=== PATIENT | male | born 1955 | race Caucasian/White ===

== ENCOUNTER 2025-04-24 12:34 | Inpatient (IN) | payer MEDICARE, OTHER ==
[~2025-04-24] VITALS: Ht 180.3 cm; Wt 69.9 kg
[2025-04-24 13:04] LABS: BASOPHILS # (AUTO) 0.1 K/UL (0.0-0.2); BASOPHILS % (AUTO) 1.2 % (0.0-2.0); EOSINOPHILS # (AUTO) 0.1 K/uL (0.0-0.7); EOSINOPHILS % (AUTO) 2.5 % (0.0-7.0); HEMATOCRIT 30.3 % (36.7-47.1); HEMOGLOBIN 10.6 g/dL (12.5-16.3); LYMPHOCYTES # (AUTO) 1.7 K/uL (0.8-4.8); LYMPHOCYTES % (AUTO) 32.2 % (20.5-51.5); MEAN CORPUSCULAR HGB CONC 35 g/dL (32.5-36.3); MEAN CORPUSCULAR VOLUME 91.4 fL (73.0-96.2); MONOCYTES # (AUTO) 0.5 K/uL (0.1-1.30); MONOCYTES % (AUTO) 9.4 % (0.0-11.0); NEUTROPHILS # (AUTO) 2.9 K/uL (1.8-8.9); NEUTROPHILS % (AUTO) 54.7 % (38.5-71.5); PLATELET COUNT (AUTO) 263 K/uL (152-348); RED BLOOD CELL COUNT(AUTO) 3.32 MIL/uL (4.06-5.63); RED CELL DISTRIBUTION WIDTH 13.2 % (12.1-16.2); WHITE BLOOD COUNT (AUTO) 5.2 K/uL (3.6-10.2)
[2025-04-24 13:06] LABS: CALCIUM 9.5 mg/dL (8.5-10.1); CARBON DIOXIDE 29 mmol/L (21-32); CHLORIDE 96 mmol/L (98-107); CREATININE 1.1 mg/dL (0.6-1.3); GLUCOSE 144 mg/dL (74-106); SODIUM SERUM 133 mmol/L (136-145); UREA NITROGEN, BLOOD 28 mg/dL (7-18)
[2025-04-24 13:07] LABS: ETHANOL < 3 MG/DL (0-10)
[2025-04-24 13:12] LABS: ALANINE AMINOTRANSFERASE 18 U/L (16-63); ALKALINE PHOSPHATASE 117 U/L (50-136); ASPARTATE AMINOTRANSFERASE 14 U/L (15-37); BILIRUBIN,DIRECT 0.1 mg/dL (0.0-0.2); BILIRUBIN,TOTAL 0.5 mg/dL (0.2-1.0); TOTAL PROTEIN, SERUM 6.9 g/dL (6.4-8.2)
[2025-04-24] MEDS ORDERED: INSU100I26 SQ (13:12)
[2025-04-24] MEDS ORDERED: INSU100V39 SQ (13:12)
[2025-04-24] MEDS ORDERED: MELA5TAB PO (13:12)
[2025-04-24] MEDS ORDERED: PANT40TA49 PO (13:12)
[2025-04-24] MEDS ORDERED: ASCO500C18 PO (13:12)
[2025-04-24] MEDS ORDERED: GLUC1KIT IM (13:12)
[2025-04-24] MEDS ORDERED: SENN-18 PO (13:12)
[2025-04-24] MEDS ORDERED: FLUT16SP NS (13:12)
[2025-04-24] MEDS ORDERED: FLUD0.1T PO (13:12)
[2025-04-24] MEDS ORDERED: FERR-68 PO (13:12)
[2025-04-24] MEDS ORDERED: TERA2CAP4 PO (13:12)
[2025-04-24] MEDS ORDERED: PROP10TA10 PO (13:12)
[2025-04-24] MEDS ORDERED: POLY250017 PO (13:12)
[2025-04-24] MEDS ORDERED: AMAN100T PO (13:12)
[2025-04-24] MEDS ORDERED: MULT-594 PO (13:12)
[2025-04-24 13:45] LABS: *BILIRUBIN,URIN NEGATIVE (NEGATIVE); *BLOOD, URINE NEGATIVE (NEGATIVE); *CLARITY,URINE CLEAR (CLEAR); *COLOR,URINE YELLOW (YELLOW); *KETONES,URINE NEGATIVE (NEGATIVE); *PROTEIN,URINE NEGATIVE (NEGATIVE); *UROBILINOGEN,URINE 0.2 E.U./dl (NORMAL); LEUKOCYTE ESTERASE ,URINE TRACE (NEGATIVE); NITRITE, URINE NEGATIVE (NEGATIVE); PH,URINE 6.5 (5.0-8.0); UGLUCOSE NEGATIVE (NEGATIVE)
[2025-04-24 13:50] LABS: BACTERIA,URINE FEW /HPF (NONE SEEN); URINE AMORPHOUS URATE FEW /HPF
[2025-04-24 13:58] LABS: *AMPHETAMINE, URINE NEGATIVE (NEGATIVE); *BARBITURATE, URINE NEGATIVE (NEGATIVE); *BENZODIAZEPINE, URINE NEGATIVE (NEGATIVE); *CANNABINOID, URINE NEGATIVE (NEGATIVE); *COCCAINE, URINE NEGATIVE (NEGATIVE); *OPIATE, URINE NEGATIVE (NEGATIVE); *PHENCYCLIDINE SCREEN,URINE NEGATIVE (NEGATIVE); FENTANYL, URINE NEGATIVE (NEGATIVE)
[2025-04-24] MEDS: SULFAMETH/TRIMETH 800/160 MG TABLET PO ONE (14:03)
[2025-04-24] MEDS ORDERED: MIRALAX 17 GM POWD.PACK PO PRN (15:00)
[2025-04-24] MEDS ORDERED: ACETAMINOPHEN 325 MG TABLET PO PRN (15:00)
[2025-04-24] MEDS ORDERED: MAGNESIUM HYDROXIDE 30 ML LIQUID UDC PO PRN (15:00)
[2025-04-24] MEDS ORDERED: ONDANSETRON 4 MG/2 ML VIAL IV PRN (15:00)
[2025-04-24] MEDS ORDERED: SENNOSIDES 1 TABLET PO PRN (15:00)
[2025-04-24] MEDS ORDERED: DEXTROSE 50% 50 ML DISP.SYRIN IV PRN (15:30)
[2025-04-24 16:20] VITALS: BP 111/68; TEMP 97.4; O2SAT 99
[2025-04-24] MEDS: BLOOD SUGAR DIAGNOSTIC 1 EACH STRIP VI SCH (16:51)
[2025-04-24] MEDS: INSULIN REGULAR, HUMAN 1000 UNIT/10 ML VIAL SQ PRN (16:52)
[2025-04-24] MEDS ORDERED: MELATONIN 3 MG TABLET PO SCH (18:00)
[2025-04-24] MEDS: PROPRANOLOL HCL 10 MG TABLET PO SCH (18:14)
[2025-04-24] MEDS: TERAZOSIN 1 MG CAPSULE PO SCH (18:14)
[2025-04-24 19:00] VITALS: BP 103/53; TEMP 98; O2SAT 97
[2025-04-24] MEDS: SULFAMETH/TRIMETH 800/160 MG TABLET PO SCH (21:11)
[2025-04-24] MEDS: FLUTICASONE PROP NASAL SPRAY 16 GM BOTTLE NS SCH (21:11)
[2025-04-24] MEDS: MELATONIN 3 MG TABLET PO SCH (21:21)
[2025-04-25 06:00] VITALS: BP 110/55; TEMP 98; O2SAT 96
[2025-04-25] MEDS: FLUDROCORTISONE ACETATE 0.1 MG TABLET PO SCH (08:39)
[2025-04-25] MEDS: ASCORBIC ACID 500 MG TABLET PO SCH (08:40)
[2025-04-25] MEDS: AMANTADINE HCL 100 MG CAPSULE PO SCH (08:40)
[2025-04-25] MEDS: PANTOPRAZOLE SODIUM 40 MG TABLET.DR PO SCH (08:40)
[2025-04-25] MEDS: MULTIVITAMINS,THERAPEUTIC TABLET PO SCH (08:40)
[2025-04-25 10:57] VITALS: BP_SYST 110; BP_SYST 120; BP_DIAS 40; BP_DIAS 54; TEMP 97.9; O2SAT 94
[2025-04-25] MEDS ORDERED: LORAZEPAM 1 MG TABLET PO PRN (15:15)
[2025-04-25 15:51] VITALS: BP 116/45; TEMP 98.6; O2SAT 98
[2025-04-25 19:00] VITALS: BP 138/58; TEMP 98; O2SAT 96
[2025-04-25] MEDS: risperiDONE 1 MG TABLET PO SCH (21:00)
[2025-04-25] MEDS ORDERED: risperiDONE 1 MG/ML UDC GT SCH (21:00)
[2025-04-26 06:00] VITALS: BP 122/60; TEMP 97.9; O2SAT 96
[2025-04-26 11:08] VITALS: BP 101/45; TEMP 98; O2SAT 96
[2025-04-26 19:15] VITALS: BP 124/62; TEMP 97.8; O2SAT 100
[2025-04-27 06:37] VITALS: BP 146/56; TEMP 97.8; O2SAT 96
[2025-04-27] MEDS ORDERED: RISP1TAB7 PO (10:35)
[2025-04-27 11:18] VITALS: BP 98/48; TEMP 98.2; O2SAT 95
== END 2025-04-27 16:11 | DRG 689 ==
LOC: ER 12:34 → MEDSURG3 15:49
DX: N39.0 Urinary tract infection, site not specified (principal); G93.41 Metabolic encephalopathy; F29 Unspecified psychosis not due to a substance or known physiological condition; F94.0 Selective mutism; Z87.820 Personal history of traumatic brain injury; Z87.81 Personal history of (healed) traumatic fracture; K21.9 Gastro-esophageal reflux disease without esophagitis; E11.9 Type 2 diabetes mellitus without complications; Z91.199 Patient's noncompliance with other medical treatment and regimen due to unspecified reason; I10 Essential (primary) hypertension; R26.2 Difficulty in walking, not elsewhere classified; R53.1 Weakness; Z91.148 Patient's other noncompliance with medication regimen for other reason; Z79.4 Long term (current) use of insulin; Z79.899 Other long term (current) drug therapy
CPT/HCPCS: 36415; 71045; 84443; 85025; 87086; G0378; G0480; J1815; J3535

== ENCOUNTER 2025-04-28 21:33 | Inpatient (IN) | payer MEDICARE, OTHER ==
[~2025-04-28] VITALS: Ht 172.7 cm; Wt 73.5 kg
[~2025-04-28 21:33] MED LIST: AMAN100T PO; ASCO500C18 PO; FERR-68 PO; FLUD0.1T PO; FLUT16SP NS; GLUC1KIT IM; INSU100I26 SQ; INSU100V39 SQ; MELA5TAB PO; MULT-594 PO; PANT40TA49 PO; POLY250017 PO; PROP10TA10 PO; RISP1TAB7 PO; SENN-18 PO; TERA2CAP4 PO
[2025-04-28 22:11] LABS: BASOPHILS % (AUTO) 0.8 % (0.0-2.0); EOSINOPHILS # (AUTO) 0.1 K/uL (0.0-0.7); EOSINOPHILS % (AUTO) 2.6 % (0.0-7.0); HEMATOCRIT 28.2 % (36.7-47.1); HEMOGLOBIN 9.9 g/dL (12.5-16.3); LYMPHOCYTES # (AUTO) 1.6 K/uL (0.8-4.8); LYMPHOCYTES % (AUTO) 33.2 % (20.5-51.5); MEAN CORPUSCULAR HEMOGLOBIN 32.1 uug (23.8-33.4); MEAN CORPUSCULAR HGB CONC 35 g/dL (32.5-36.3); MEAN CORPUSCULAR VOLUME 91.2 fL (73.0-96.2); MONOCYTES # (AUTO) 0.4 K/uL (0.1-1.30); MONOCYTES % (AUTO) 7.9 % (0.0-11.0); NEUTROPHILS # (AUTO) 2.6 K/uL (1.8-8.9); NEUTROPHILS % (AUTO) 55.5 % (38.5-71.5); PLATELET COUNT (AUTO) 265 K/uL (152-348); RED BLOOD CELL COUNT(AUTO) 3.09 MIL/uL (4.06-5.63); RED CELL DISTRIBUTION WIDTH 13.1 % (12.1-16.2); WHITE BLOOD COUNT (AUTO) 4.7 K/uL (3.6-10.2)
[2025-04-28 22:11] LABS: *BILIRUBIN,URIN NEGATIVE (NEGATIVE); *BLOOD, URINE NEGATIVE (NEGATIVE); *CLARITY,URINE CLEAR (CLEAR); *COLOR,URINE YELLOW (YELLOW); *KETONES,URINE NEGATIVE (NEGATIVE); *PROTEIN,URINE NEGATIVE (NEGATIVE); *UROBILINOGEN,URINE 0.2 E.U./dl (NORMAL); LEUKOCYTE ESTERASE ,URINE NEGATIVE (NEGATIVE); NITRITE, URINE NEGATIVE (NEGATIVE); PH,URINE 5.5 (5.0-8.0); UGLUCOSE TRACE (NEGATIVE)
[2025-04-28 22:15] LABS: DIFFERENTIAL COMMENT 1
[2025-04-28 22:20] LABS: *AMPHETAMINE, URINE NEGATIVE (NEGATIVE); *BARBITURATE, URINE NEGATIVE (NEGATIVE); *BENZODIAZEPINE, URINE NEGATIVE (NEGATIVE); *CANNABINOID, URINE NEGATIVE (NEGATIVE); *COCCAINE, URINE NEGATIVE (NEGATIVE); *OPIATE, URINE NEGATIVE (NEGATIVE); *PHENCYCLIDINE SCREEN,URINE NEGATIVE (NEGATIVE); FENTANYL, URINE NEGATIVE (NEGATIVE)
[2025-04-28 22:23] LABS: ALANINE AMINOTRANSFERASE 20 U/L (16-63); ALBUMIN 3.8 g/dL (3.4-5.0); ALKALINE PHOSPHATASE 142 U/L (50-136); ASPARTATE AMINOTRANSFERASE 10 U/L (15-37); BILIRUBIN,DIRECT 0.1 mg/dL (0.0-0.2); BILIRUBIN,TOTAL 0.3 mg/dL (0.2-1.0); CALCIUM 9.3 mg/dL (8.5-10.1); CARBON DIOXIDE 31 mmol/L (21-32); CHLORIDE 96 mmol/L (98-107); CREATININE 1.2 mg/dL (0.6-1.3); GLUCOSE 184 mg/dL (74-106); POTASSIUM 3.7 mmol/L (3.5-5.1); SODIUM SERUM 133 mmol/L (136-145); TOTAL PROTEIN, SERUM 6.1 g/dL (6.4-8.2); UREA NITROGEN, BLOOD 33 mg/dL (7-18)
[2025-04-28 22:24] LABS: ETHANOL < 3 MG/DL (0-10)
[2025-04-28 22:35] LABS: THYROID STIMULATING HORMONE 5.115 mIU/mL (0.358-3.740)
[2025-04-28 22:36] LABS: ACETAMINOPHEN < 10.0 ug/mL (10-30)
[2025-04-29] MEDS ORDERED: MAGNESIUM HYDROXIDE 30 ML LIQUID UDC PO PRN (01:30)
[2025-04-29] MEDS ORDERED: LORAZEPAM 1 MG TABLET PO PRN ×2 (01:30)
[2025-04-29] MEDS ORDERED: TEMAZEPAM 7.5 MG CAPSULE PO PRN ×2 (01:30)
[2025-04-29] MEDS ORDERED: MAG HYDROX/AL HYDROX/SIMETH 30 ML LIQUID UDC PO PRN (01:30)
[2025-04-29] MEDS: BLOOD SUGAR DIAGNOSTIC 1 EACH STRIP VI ONE (01:30)
[2025-04-29] MEDS ORDERED: ACETAMINOPHEN 325 MG TABLET PO PRN (01:30)
[2025-04-29] MEDS ORDERED: RISP1TAB7 PO (03:07)
[2025-04-29] MEDS ORDERED: TEMAZEPAM 15 MG CAPSULE PO PRN (05:30)
[2025-04-29 07:30] VITALS: BP 121/57; TEMP 97.8; O2SAT 96
[2025-04-29 16:30] VITALS: BP 127/71; TEMP 97.7; O2SAT 96
[2025-04-29] MEDS ORDERED: MIRALAX 17 GM POWD.PACK PO PRN (17:00)
[2025-04-29] MEDS ORDERED: SENNOSIDES 1 TABLET PO PRN (17:00)
[2025-04-29] MEDS ORDERED: DEXTROSE 50% 50 ML DISP.SYRIN IV PRN (17:00)
[2025-04-29] MEDS: BLOOD SUGAR DIAGNOSTIC 1 EACH STRIP VI SCH (17:23)
[2025-04-29] MEDS: INSULIN GLARGINE,HUM 300 UNITS/3 ML CARTRIDGE SQ SCH (18:00)
[2025-04-29] MEDS: PROPRANOLOL HCL 10 MG TABLET PO SCH (18:03)
[2025-04-29 20:17] VITALS: BP 123/51; TEMP 97.8; O2SAT 95
[2025-04-29] MEDS: FLUTICASONE PROP NASAL SPRAY 16 GM BOTTLE NS SCH (20:24)
[2025-04-29] MEDS: risperiDONE 0.5 MG TABLET PO SCH (20:31)
[2025-04-29] MEDS: TERAZOSIN 1 MG CAPSULE PO SCH (20:32)
[2025-04-29] MEDS: INSULIN REGULAR, HUMAN 1000 UNIT/10 ML VIAL SQ PRN (20:50)
[2025-04-30] MEDS: PANTOPRAZOLE SODIUM 40 MG TABLET.DR PO SCH (07:16)
[2025-04-30 07:54] VITALS: BP 94/45; TEMP 98; O2SAT 94
[2025-04-30] MEDS: MULTIVITAMINS,THERAPEUTIC TABLET PO SCH (09:23)
[2025-04-30] MEDS: ASCORBIC ACID 500 MG TABLET PO SCH (09:23)
[2025-04-30] MEDS: FERROUS SULFATE 325 MG TABEC PO SCH (09:23)
[2025-04-30] MEDS: FLUDROCORTISONE ACETATE 0.1 MG TABLET PO SCH (09:25)
[2025-04-30] MEDS: NICOTINE 21 MG/24HR PATCH TD SCH (09:25)
[2025-04-30] MEDS: AMANTADINE HCL 100 MG CAPSULE PO SCH (09:39)
[2025-04-30 15:25] VITALS: BP 102/46; TEMP 98; O2SAT 99
[2025-04-30 20:00] VITALS: BP 121/61; TEMP 97.9; O2SAT 98
[2025-04-30] MEDS: risperiDONE 1 MG TABLET PO SCH (20:34)
[2025-04-30] MEDS ORDERED: risperiDONE 0.5 MG TABLET PO SCH (21:00)
[2025-05-01 08:02] VITALS: BP 116/55; TEMP 98.2; O2SAT 98
[2025-05-01 15:32] VITALS: BP 121/54; TEMP 98.2; O2SAT 98
[2025-05-01 20:00] VITALS: BP 113/46; TEMP 97.4; O2SAT 98
[2025-05-02 08:18] VITALS: BP 126/52; TEMP 98.2; O2SAT 99
[2025-05-02 15:35] VITALS: BP 126/48; TEMP 98.2; O2SAT 98
[2025-05-02 20:10] VITALS: BP 120/51; TEMP 98.1; O2SAT 97
[2025-05-03 08:34] VITALS: BP 100/49; TEMP 98.5; O2SAT 97
[2025-05-03 20:00] VITALS: BP 132/64; TEMP 97.4; O2SAT 99
[2025-05-03] MEDS: risperiDONE 1 MG TABLET PO SCH (20:05)
[2025-05-04 08:30] VITALS: BP 134/60; TEMP 98.5; O2SAT 98
[2025-05-05 08:32] VITALS: BP 118/60; TEMP 97.4; O2SAT 98
[2025-05-05] MEDS: risperiDONE 1 MG TABLET PO SCH (20:42)
[2025-05-06 08:00] VITALS: BP 132/66; TEMP 97.8; O2SAT 97
[2025-05-06 16:43] VITALS: BP 126/68; TEMP 97.4; O2SAT 97
[2025-05-06 20:13] VITALS: BP 134/64; TEMP 98; O2SAT 96
[2025-05-07 08:50] VITALS: BP 112/51; TEMP 98; O2SAT 98
[2025-05-07 15:57] VITALS: BP 100/48; TEMP 98; O2SAT 99
[2025-05-07 19:50] VITALS: BP 135/60; TEMP 97.5; O2SAT 95
[2025-05-07] MEDS: risperiDONE 1 MG TABLET PO SCH (20:51)
[2025-05-08 08:17] VITALS: BP 124/62; TEMP 98; O2SAT 98
[2025-05-08 15:58] VITALS: BP 116/50; TEMP 98; O2SAT 96
[2025-05-08 20:00] VITALS: BP 122/49; TEMP 97.7; O2SAT 95
[2025-05-08] MEDS ORDERED: risperiDONE 2 MG TABLET PO SCH (21:00)
[2025-05-09 10:50] VITALS: BP 124/64; TEMP 98; O2SAT 98
[2025-05-09 15:32] VITALS: BP 100/51; TEMP 98; O2SAT 98
[2025-05-09 20:00] VITALS: BP 132/57; TEMP 98.1; O2SAT 97
[2025-05-10 08:30] VITALS: BP 116/50; TEMP 98.5; O2SAT 97
[2025-05-10 16:57] VITALS: BP 113/48; TEMP 98.5; O2SAT 98
[2025-05-10 20:00] VITALS: BP 121/57; TEMP 98; O2SAT 100
[2025-05-11 08:30] VITALS: BP 133/57; TEMP 98.1; O2SAT 100
[2025-05-11] MEDS: risperiDONE 2 MG TABLET PO SCH (08:53)
[2025-05-11] MEDS ORDERED: risperiDONE 1 MG TABLET PO SCH (09:00)
[2025-05-11 16:59] VITALS: BP 118/52; TEMP 98; O2SAT 100
[2025-05-11 20:21] VITALS: BP 130/56; TEMP 98.3; O2SAT 98
[2025-05-12 08:26] VITALS: BP 134/60; TEMP 98.1; O2SAT 100
[2025-05-12 09:22] VITALS: BP 134/60
== END 2025-05-12 15:30 | DRG 885 ==
LOC: ER 21:33 → GPS 04-29 01:09
PROVIDERS: ADMIT Psychiatry & Neurology Psychiatry
DX: F29 Unspecified psychosis not due to a substance or known physiological condition (principal); S42.212K Unspecified displaced fracture of surgical neck of left humerus, subsequent encounter for fracture with nonunion; F20.9 Schizophrenia, unspecified; X58.XXXD Exposure to other specified factors, subsequent encounter; Z91.148 Patient's other noncompliance with medication regimen for other reason; K21.9 Gastro-esophageal reflux disease without esophagitis; Z87.820 Personal history of traumatic brain injury; M25.512 Pain in left shoulder; E11.9 Type 2 diabetes mellitus without complications; E03.8 Other specified hypothyroidism; D50.9 Iron deficiency anemia, unspecified; Z87.81 Personal history of (healed) traumatic fracture; F39 Unspecified mood [affective] disorder; F17.210 Nicotine dependence, cigarettes, uncomplicated; R79.89 Other specified abnormal findings of blood chemistry; Z86.16 Personal history of COVID-19; Z79.4 Long term (current) use of insulin; Z79.899 Other long term (current) drug therapy
CPT/HCPCS: 36415; 71045; 73030; 83605; 84443; 84484; 85025; 87040; A4606; A4663; G0480; J1815; J3535